=== PATIENT | male | born 1950 | race Caucasian/White ===

== ENCOUNTER 2023-06-25 15:07 | Emergency (ER) | payer BC, MEDICARE, SELFPAY ==
[2023-06-25 15:10] VITALS: BP 128/58
[2023-06-25 15:39] LABS: % Basophils 0.5 % (0-2); % Immature Granulocytes 0.5 % (0-0.5); % Lymphocytes 24.3 % (20.5-51.1); % Monocytes 13.5 % (1.7-9.3); % Neutrophils 55.2 % (42.2-75.2); Absolute Eosinophils 0.4 10^3/uL (0-0.7); Absolute Lymphocytes 1.5 10^3/uL (1.2-3.4); Absolute Monocytes 0.8 10^3/uL (0.1-0.6); Absolute Neutrophils 3.4 10^3/uL (1.4-6.5); Hemoglobin 12.7 g/dL (13.0-18.0); Mean Corp Hgb Conc. 34.3 g/dL (33.0-37.0); Mean Corpuscular Hgb 30.8 pg (27.0-31.0); Mean Corpuscular Volume 89.6 fL (80.0-94.0); Mean Platelet Volume 11.3 fL (7.4-10.4); Nucleated Red Blood Cells % 0 % (-); Platelet Count 118 10^3/uL (130-400); Red Blood Cell Count 4.13 10^6/uL (4.70-6.10); White Blood Cell Count 6.1 10^3/uL (4.8-10.8)
[2023-06-25 15:51] LABS: ALT (SGPT) 22 U/L (0-50); AST (SGOT) 24 U/L (17-59); Albumin 3.8 g/dl (3.5-5.0); Alkaline Phosphatase 61 U/L (38-126); Blood Urea Nitrogen 20 mg/dl (9-20); Calcium 8.8 mg/dl (8.4-10.2); Carbon Dioxide 30 mmol/L (22-30); Chloride 99 mmol/L (98-107); Glucose 148 mg/dl (70-99); Potassium 4.1 mmol/L (3.5-5.1); Sodium 134 mmol/L (135-145); Total Bilirubin 0.7 mg/dl (0.2-1.3); Total Protein 6.3 g/dl (6.3-8.2); eGFR > 60.00
[2023-06-25 16:00] LABS: Troponin I < 0.012 ng/ml
[2023-06-25 16:55] LABS: NT-proBNP 436 pg/ml
[2023-06-25 18:15] VITALS: BMI 38.6
[2023-06-25 18:20] VITALS: BP 131/60
--- NOTE | 2023-06-25 18:41 | ED.GENMED ---
History of Present Illness
General
Chief Complaint: Breathing Problem
Source: patient
Exam Limitations: none
Time Seen by Provider: 06/25/23 18:06
Nursing documentation reviewed up to this point in time: agreed with
Travel History
Have you had any contact with someone who has COVID-19?: No
Do you have any symptoms of coronavirus? Fever > 100 degrees, chills, cough, shortness of breath, sore throat, loss of taste or smell, muscle aches, or headache?: No
History of Present Illness
History of Present Illness:
73-year-old male presents emergency department due to chest pain that started yesterday, and shortness of breath today. He had a TAVR on 06/16/2023. He denies chest pain at this time.
Past History
Past History
ED Past Medical History: Other (Kidney stones, BPH) and Other (Aortic stenosis)
ED Past Surgical History: Urological
Social History
Tobacco: Non-smoker
Personal:
Living: with family
Review of Systems
Review of Systems
Allergies reviewed?: Yes
All Other Systems: Not applicable
Constitutional: Reports no symptoms
EENT: Reports no symptoms
Respiratory: Reports trouble breathing
Cardiac: Reports chest pain
ABD/GI: Reports no symptoms
: Reports no symptoms
Musculoskeletal: Reports no symptoms
Skin: Reports no symptoms
Neurological: Reports no symptoms
Endocrine: Reports no symptoms
Hematologic/Lymphatic: Reports no symptoms
Psychiatric: Reports no symptoms
Phy Exam
Physical Exam
Physical Exam:
Physical Exam
General: no apparent distress, not acutely ill
Neck: supple. no meningeal signs. normal posterior pharynx
Heart: s1/s2 regular rate and rhythm, no murmur. equal radial
pulses.
HEENT: Pupils equal round reactive to light, EOMI
Lungs: no acute respiratory distress. clear bilaterally
Abdomen: normal bowel sounds. not tender. no CVAT
Neuro: alert and oriented. no focal neurological deficits cranial nerves II through XII intact
Skin: no rash
Psychiatric: well kept. interactive and cooperative
Extremities: no edema. no calf tenderness. negative homans. good distal pulses
Scores
Heart Failure Risk
Heart Failure Risk Score: Not Applicable
Heart Score for Chest Pain Patients
STEMI patient?: No
History: Slightly or Non-Suspicious
ECG: Normal
Age: >/= 65 years
Risk Factors: 1 or 2 Risk Factors
Troponin: </= Normal Limit
Heart Score for Chest Pain Patients: 3
Heart Score Risk: 2.5% MACE over next 6 weeks
Course
Orders/Labs/Results
Orders:
Orders
06/25/23 15:13
Electrocardiogram (*1) Urgent
Reason for Study: Chest Pain
EKG- Treatment ONCE
06/25/23 15:26
Complete Blood Count/With Diff Urgent
Comprehensive Metabolic Panel Urgent
NT-proBNP Urgent
Comment: ADD ON
Troponin I Urgent
06/25/23 16:20
Add On- LAB Urgent
Tests Added?: bnp
06/25/23 16:21
CR Chest - 2 Views Urgent
Comment:
Reason For Exam: SOB
Abnormal Lab Results
06/25/23
15:26
RBC 4.13 L 10^6/uL
(4.70-6.10)
Hgb 12.7 L g/dL
(13.0-18.0)
Hct 37.0 L %
(39.0-52.0)
Plt Count 118 L 10^3/uL
(130-400)
MPV 11.3 H fL
(7.4-10.4)
Absolute Monos (auto) 0.8 H 10^3/uL
(0.1-0.6)
Monocytes % 13.5 H %
(1.7-9.3)
Sodium 134 L mmol/L
(135-145)
Glucose 148 H mg/dl
(70-99)
06/25/23 15:26
06/25/23 15:26
Vital Signs
Initial and Last Documented VS:
Initial Vital Signs
Temp Pulse Resp BP Pulse Ox
98.2 F 61 18 128/58 95
06/25/23 15:10 06/25/23 15:10 06/25/23 15:10 06/25/23 15:10 06/25/23 15:10
Last Documented Vital Signs
Temp Pulse Resp BP Pulse Ox
98.2 F 60 21 131/60 92
06/25/23 15:10 06/25/23 18:45 06/25/23 18:45 06/25/23 18:20 06/25/23 18:45
MDM/Problems Addressed
Differential Diagnosis Includes:
CHF, ACS, pneumonia
MDM/Problems Addressed:
73-year-old male with chest pain and shortness of breath, resolved. Recent TAVR. Stable for discharge. Discussed with Dr. Will Peres, recommends discharge if hemodynamically stable.
Chronic conditions affecting care: Cardiomyopathy
Acute Exacerbation and/or Progression of Chronic Illness: Cardiomyopathy
*Radiology
Radiology exam reviewed: radiology read reviewed (Chest x-ray no acute findings)
*Pulse Oximetry
Patient hypoxic: no
*EKG
Interpreted by ED Provider?: Yes
EKG Intrepretation Date: 06/25/23
EKG Intrepretation Time: 15:17
Interpretation: normal
Comparison EKG: changes noted
Heart Rate: 63
Rate: normal
Rhythm: sinus
[place]: normal axis
Interval: normal interval
QRS Pattern: normal QRS
Ischemia: no ischemia
*Concrete Vault Maker Interpretation
Rate: normal
Interpretation: normal
Heart Rate: 62
Rhythm: sinus
*Critical Care Note
Total Time (30-74mins, 75-104mins- exclusive of procedures): Not Applicable
Data Reviewed
Review of Other/Old Records Reveals: Operative Reports (TAVR 06/17/[address] Richey)
Patient Management
Social determinants of health affecting care: Strong social support
Discussion with other providers: Transportation Mechanic (cardiology Dr. Peres)
Escalation/DeEscalation of care consider admission/obs:
admit not indicated
ED Attending Note
-
Portions of this chart may have been created with voice recognition software.� Occasional wrong word or��sound alike� substitutions may have occurred due to the inherent limitations of voice recognition software.
Discharge Plan
Departure
Patient Disposition: Home (Routine Discharge)
Date of Disposition: 06/25/23
Time of Disposition: 19:35
Patient with high blood pressure during this ER visit?: Yes
Condition: Good
Discharge Problem:
Chest pain
Instructions: Chest Pain DCA Follow Up
Prescriptions:
No Action
hydrochlorothiazide 50 MG tablet
25 mg PO DAILY
tamsulosin 0.4 MG capsule
0.4 mg PO HS
metformin 500 MG tablet
1,000 mg PO BID
Hold Instructions: Resume on 06/19/23. Hold until friday06/19/2023
duloxetine 30 MG capsule,delayed release(/EC)
30 mg PO HS
acetaminophen 325 MG tablet
650 mg PO Q4HPRN PRN (Reason: pain)
allopurinol 300 mg Tablet
300 mg PO HS
tadalafil [Cialis] 5 mg Tablet
5 mg PO DAILY
Mounjaro 2.5 mg/0.5 mL Pen Injector
5 mg SC FR
Hold Instructions: Resume on 07/02/23. Hold for 2 weeks until 07/02/2023
aspirin 81 mg Tablet,Chewable
81 mg PO DAILY
atorvastatin 20 mg tablet
20 mg PO HS Qty: 90 3RF
Rx Instructions:
Note increased dose
metoprolol succinate 25 mg tablet extended release 24 hr
25 mg PO DAILY Qty: 90 3RF
furosemide 40 mg tablet
40 mg PO DAILY Qty: 90 3RF
Referrals:
UNKNOWN - PT DOES,NOT KNOW [Unknown Provider] -
Interventions
Interventions:
*Risk Screen - Suicide Last Done: 06/25/23 15:10
*General Assessment Last Done: 06/25/23 18:15
*Neglect/Abuse Screening Last Done: 06/25/23 15:10
ED- Fall Risk Assessment Last Done: 06/25/23 18:05
*ED COVID-19 Vaccine History Last Done: 06/25/23 15:10
ED- Cardiac Assessment Last Done: 06/25/23 18:15
ED- Pulmonary Assessment Last Done: 06/25/23 18:05
== END 2023-06-25 20:12 | disposition home or self-care (01) ==
LOC: EMR 15:07
PROVIDERS: Emergency Medicine; EMERGENCY PHYSICIAN Emergency Medicine; FAMILY PHYSICIAN Family Medicine
DX: R07.89 Other chest pain (principal); R03.0 Elevated blood-pressure reading, without diagnosis of hypertension
CPT/HCPCS: 99285; 71046; 80053; 83880; 84484; 85025; 93005

== ENCOUNTER 2023-07-23 10:16 | Emergency (ER) | payer BC, SELFPAY ==
[2023-07-23 10:24] VITALS: BP 126/64
[2023-07-23 11:46] VITALS: BMI 38.0
--- NOTE | 2023-07-23 11:58 | ED.GENMED ---
History of Present Illness
<Sirena Browne MD - Last Filed: 07/23/23 12:25>
General
Chief Complaint: Chest Pain
Source: patient
Exam Limitations: none
Time Seen by Provider: 07/23/23 11:44
Nursing documentation reviewed up to this point in time: agreed with
Travel History
Have you had any contact with someone who has COVID-19?: No
Do you have any symptoms of coronavirus? Fever > 100 degrees, chills, cough, shortness of breath, sore throat, loss of taste or smell, muscle aches, or headache?: No
History of Present Illness
History of Present Illness:
The patient is a pleasant 73-year-old man with a past medical history of high blood pressure and recent TAVR procedure done last month, who comes in with complaints of 5 days of constant diffuse chest pain, both across the front of his chest and in
his right scapular area. Patient reports that the pain seems to intensify when he is standing up and just standing around. It seems to improve with rest. However, at times it is worse when he takes a deep breath. He reports after his TAVR
procedure, he did have a cough and was treated with antibiotics for pneumonia. He reports his cough is improved but he still worries he may have pneumonia. He denies shortness of breath that is significant. He denies fever. He denies leg pain
and leg swelling.
Past History
<Sirena Browne MD - Last Filed: 07/23/23 12:25>
Past History
ED Past Medical History: HTN, Other (Kidney stones, BPH) and Other (Aortic stenosis)
ED Past Surgical History: Cardiac (Aortic valve replacement) and Urological
Social History
Tobacco: Non-smoker
Alcohol: Other
Personal:
Living: with family
Employment: Other
Family History
Family History: Other
Review of Systems
<Sirena Browne MD - Last Filed: 07/23/23 12:25>
Review of Systems
Allergies reviewed?: Yes
All Other Systems: ROS reviewed and negative except as documented in HPI and ROS
Constitutional: Reports no symptoms
EENT: Reports no symptoms
Respiratory: Reports no symptoms
Cardiac: Reports chest pain
ABD/GI: Reports no symptoms
: Reports no symptoms
Musculoskeletal: Reports no symptoms
Skin: Reports no symptoms
Neurological: Reports no symptoms
Endocrine: Reports no symptoms
Hematologic/Lymphatic: Reports no symptoms
Psychiatric: Reports no symptoms
Phy Exam
<Sirena Browne MD - Last Filed: 07/23/23 12:25>
Physical Exam
Physical Exam:
Physical Exam
General: no apparent distress, not acutely ill, appears comfortable. Conversational, smiling
Neck: supple.
Heart: s1/s2 regular rate and rhythm,
Lungs: no acute respiratory distress. clear bilaterally
Abdomen: normal bowel sounds. not tender. no CVAT. Soft no pulsatile mass
Neuro: alert and oriented. no focal neurological deficits
Skin: no rash
Psychiatric: well kept. interactive and cooperative
Extremities: Trace edema bilateral ankles
<Jeremias Pittman DO - Last Filed: 07/28/23 06:06>
Heart Score for Chest Pain Patients
STEMI patient?: Not applicable
Course
<Sirena Browne MD - Last Filed: 07/23/23 12:25>
Orders/Labs/Results
Orders:
Orders
07/23/23 10:18
Electrocardiogram (*1) Urgent
Reason for Study: Chest Pain
EKG- Treatment ONCE
07/23/23 12:17
CT Chest Pe Study Urgent
Comment:
Reason For Exam: CP
Complete Blood Count/With Diff Urgent
Comprehensive Metabolic Panel Urgent
Troponin I Urgent
07/23/23 13:05
Acetaminophen [Tylenol] 1,000 mg PO NOW STA
Abnormal Lab Results
07/23/23
12:17
RBC 4.46 L 10^6/uL
(4.70-6.10)
Hct 38.7 L %
(39.0-52.0)
MPV 11.0 H fL
(7.4-10.4)
Absolute Monos (auto) 1.0 H 10^3/uL
(0.1-0.6)
Lymphocytes % 17.5 L %
(20.5-51.1)
Monocytes % 10.1 H %
(1.7-9.3)
Sodium 134 L mmol/L
(135-145)
Glucose 105 H mg/dl
(70-99)
07/23/23 12:17
07/23/23 12:17
Vital Signs
Initial and Last Documented VS:
Initial Vital Signs
Temp Pulse Resp BP Pulse Ox
98.4 F 73 16 126/64 98
07/23/23 10:24 07/23/23 10:24 07/23/23 10:24 07/23/23 10:24 07/23/23 10:24
Last Documented Vital Signs
Temp Pulse Resp BP Pulse Ox
98.4 F 63 20 124/63 94
07/23/23 10:24 07/23/23 15:00 07/23/23 15:00 07/23/23 14:37 07/23/23 15:00
Evangelinalt;Jeremias Pittman, DO - Last Filed: 07/28/23 06:06>
Orders/Labs/Results
Orders:
Orders
07/23/23 10:18
Electrocardiogram (*1) Urgent
Reason for Study: Chest Pain
EKG- Treatment ONCE
07/23/23 12:17
CT Chest Pe Study Urgent
Comment:
Reason For Exam: CP
Complete Blood Count/With Diff Urgent
Comprehensive Metabolic Panel Urgent
Troponin I Urgent
07/23/23 13:05
Acetaminophen [Tylenol] 1,000 mg PO NOW STA
Abnormal Lab Results
07/23/23
12:17
RBC 4.46 L 10^6/uL
(4.70-6.10)
Hct 38.7 L %
(39.0-52.0)
MPV 11.0 H fL
(7.4-10.4)
Absolute Monos (auto) 1.0 H 10^3/uL
(0.1-0.6)
Lymphocytes % 17.5 L %
(20.5-51.1)
Monocytes % 10.1 H %
(1.7-9.3)
Sodium 134 L mmol/L
(135-145)
Glucose 105 H mg/dl
(70-99)
07/23/23 12:17
07/23/23 12:17
Vital Signs
Initial and Last Documented VS:
Initial Vital Signs
Temp Pulse Resp BP Pulse Ox
98.4 F 73 16 126/64 98
07/23/23 10:24 07/23/23 10:24 07/23/23 10:24 07/23/23 10:24 07/23/23 10:24
Last Documented Vital Signs
Temp Pulse Resp BP Pulse Ox
98.4 F 63 20 124/63 94
07/23/23 10:24 07/23/23 15:00 07/23/23 15:00 07/23/23 14:37 07/23/23 15:00
<Sirena Browne MD - Last Filed: 07/23/23 12:25>
MDM/Problems Addressed
Differential Diagnosis Includes:
pneumonia, acute coronary syndrome, pulmonary embolism, aortic dissection, musculoskeletal chest pain, pericardial effusion, pericarditis
MDM/Problems Addressed:
Patient presents with acute diffuse chest pain and right upper back pain
Chronic conditions affecting care:
Given patient has a history of hypertension, he could be at increased risk of developing acute coronary syndrome
Chronic conditions affecting care: HTN
<Sirena Browne MD - Last Filed: 07/23/23 12:25>
*Pulse Oximetry
Patient hypoxic: no
*EKG
Interpreted by ED Provider?: Yes
Interpretation: normal
Comparison EKG: no changes
Rate: normal
Rhythm: sinus
[place]: normal axis
Interval: normal interval
QRS Pattern: normal QRS
Ischemia: no ischemia
*Home Agent Interpretation
Rate: normal
Interpretation: normal
Rhythm: sinus
Data Reviewed
Review of Other/Old Records Reveals: Progress Notes (Cardiology progress note reviewed from 06/18/2023 which showed successful TAVR procedure and normal appearing echo)
Source: patient
<Jeremias Pittman DO - Last Filed: 07/28/23 06:06>
*Critical Care Note
Total Time (30-74mins, 75-104mins- exclusive of procedures): Not Applicable
<Sirena Browne MD - Last Filed: 07/23/23 12:25>
Patient Management
Social determinants of health affecting care: Living situation and Strong social support
<Jeremias Pittman DO - Last Filed: 07/28/23 06:06>
Update Note
Update Note:
Care of patient was transitioned pending CT PE. Patient had recent TAVR 1 month ago and has been complaining of a mild cough. CT negative for PE. There are expected changes in regards to small pericardial effusion and small pleural effusion. No
PE or pneumonia. We discussed possible muscle relaxant for intercostal muscle strain from coughing but patient seems uninterested. He will follow-up with his cardiothoracic team
Patient very well-appearing nontoxic on my exam
ED Attending Note
<Sirena Browne MD - Last Filed: 07/23/23 12:25>
-
Portions of this chart may have been created with voice recognition software.� Occasional wrong word or��sound alike� substitutions may have occurred due to the inherent limitations of voice recognition software.
Discharge Plan
Departure
Patient Disposition: Home (Routine Discharge)
Date of Disposition: 07/23/23
Time of Disposition: 15:04
Patient with high blood pressure during this ER visit?: No
Discharge Problem:
Intercostal muscle strain
Prescriptions:
No Action
hydrochlorothiazide 50 MG tablet
50 mg PO DAILY
tamsulosin 0.4 MG capsule
0.4 mg PO HS
duloxetine 30 MG capsule,delayed release(DR/EC)
30 mg PO HS
acetaminophen 325 MG tablet
650 mg PO Q4HPRN PRN (Reason: mild pain)
allopurinol 300 mg Tablet
300 mg PO HS
tadalafil [Cialis] 5 mg Tablet
5 mg PO DAILY
Mounjaro 2.5 mg/0.5 mL Pen Injector
5 mg SC FR
Hold Instructions: Resume on 07/02/23. Hold for 2 weeks until 07/02/2023
aspirin 81 mg Tablet,Chewable
81 mg PO DAILY
atorvastatin 20 mg tablet
20 mg PO HS Qty: 90 3RF
metoprolol succinate 25 mg tablet extended release 24 hr
25 mg PO DAILY Qty: 90 3RF
furosemide 40 mg tablet
40 mg PO DAILY Qty: 90 3RF
lidocaine 5 % Adhesive Patch,Medicated
2 patch TOPICAL DAILYPRN PRN (Reason: on to each shoulder)
docusate sodium [Colace] 100 mg Capsule
100 mg PO BIDPRN PRN (Reason: constipation)
metformin 500 mg Tablet Extended Release 24 Hr
1,000 mg PO BID@0800,1700
[place] 3 billion cell Capsule
1 cap PO DAILY
Referrals:
Yancy Traore DO [Family Provider] -
Activity Restrictions/Additional Instructions:
Please return for any worsening symptoms.
You may return at any time if you have further concerns.
Please follow up with your cardiothoracic surgeon and discuss the CT findings.
Thank you for choosing [facility].
Interventions
Interventions:
*Risk Screen - Suicide Last Done: 07/23/23 11:46
*General Assessment Last Done: 07/23/23 11:46
*Neglect/Abuse Screening Last Done: 07/23/23 11:46
ED- Fall Risk Assessment Last Done: 07/23/23 12:06
*ED COVID-19 Vaccine History Last Done: 07/23/23 10:24
*Nursing Disposition Last Done: 07/23/23 15:09
ED- Cardiac Assessment Last Done: 07/23/23 11:46
Discharge Date and Time
Discharge Date/Time: 07/23/23 15:10
[2023-07-23 12:00] VITALS: BP 170/71
[2023-07-23 12:48] LABS: % Basophils 0.4 % (0-2); % Eosinophils 3.5 % (0-6); % Immature Granulocytes 0.3 % (0-0.5); % Lymphocytes 17.5 % (20.5-51.1); % Monocytes 10.1 % (1.7-9.3); % Neutrophils 68.2 % (42.2-75.2); Absolute Eosinophils 0.3 10^3/uL (0-0.7); Absolute Lymphocytes 1.7 10^3/uL (1.2-3.4); Absolute Neutrophils 6.4 10^3/uL (1.4-6.5); Hematocrit 38.7 % (39.0-52.0); Hemoglobin 13.5 g/dL (13.0-18.0); Mean Corp Hgb Conc. 34.9 g/dL (33.0-37.0); Mean Corpuscular Hgb 30.3 pg (27.0-31.0); Mean Corpuscular Volume 86.8 fL (80.0-94.0); Nucleated Red Blood Cells % 0 % (-); Platelet Count 189 10^3/uL (130-400); Red Blood Cell Count 4.46 10^6/uL (4.70-6.10); Red Cell Dist. Width 13.8 % (11.5-14.5); White Blood Cell Count 9.4 10^3/uL (4.8-10.8)
[2023-07-23 13:00] VITALS: BP 133/56
[2023-07-23 13:12] LABS: ALT (SGPT) 19 U/L (0-50); AST (SGOT) 27 U/L (17-59); Albumin 4.2 g/dl (3.5-5.0); Alkaline Phosphatase 48 U/L (38-126); Blood Urea Nitrogen 20 mg/dl (9-20); Carbon Dioxide 25 mmol/L (22-30); Chloride 101 mmol/L (98-107); Estimated Creatinine Clearance 108 ml/min; Glucose 105 mg/dl (70-99); Potassium 4.6 mmol/L (3.5-5.1); Sodium 134 mmol/L (135-145); Total Bilirubin 0.8 mg/dl (0.2-1.3); eGFR > 60.00
[2023-07-23 13:14] LABS: Troponin I < 0.012 ng/ml
[2023-07-23] MEDS: TYLENOL 1000 MG PO (13:15)
[2023-07-23 14:00] VITALS: BP 171/76
[2023-07-23 14:37] VITALS: BP 124/63
[2023-07-24 06:59] LABS: Glucose - Point of Care 90 mg/dl (70-99)
== END 2023-07-23 15:10 | disposition home or self-care (01) ==
LOC: EMR 10:16
PROVIDERS: EMERGENCY PHYSICIAN Emergency Medicine; FAMILY PHYSICIAN Family Medicine
DX: S29.011A Strain of muscle and tendon of front wall of thorax, initial encounter (principal); X58.XXXA Exposure to other specified factors, initial encounter; M54.89 Other dorsalgia; I10 Essential (primary) hypertension; J90 Pleural effusion, not elsewhere classified; Z95.2 Presence of prosthetic heart valve
CPT/HCPCS: 99285; 71275; 80053; 82962; 84484; 85025; 93005; Q9967

== ENCOUNTER → 2023-08-06 15:58 | Outpatient (REF) | payer BC, SELFPAY | LOC: DHCBS MAIN 15:58 | PROVIDERS: ATTENDING PHYSICIAN Internal Medicine Cardiovascular Disease; FAMILY PHYSICIAN Family Medicine | DX: Z95.2 Presence of prosthetic heart valve (principal) | CPT/HCPCS: 93306 ==

== ENCOUNTER 2023-08-22 09:41 | Outpatient (RCR) | payer BC, SELFPAY ==
[2023-07-31 10:58] LABS: Glucose - Point of Care 111 mg/dl (70-99)
[2023-07-31 11:58] LABS: Glucose - Point of Care 98 mg/dl (70-99)
[2023-08-04 09:31] LABS: Glucose - Point of Care 134 mg/dl (70-99)
[2023-08-04 10:21] LABS: Glucose - Point of Care 130 mg/dl (70-99)
[2023-08-08 09:21] LABS: Glucose - Point of Care 179 mg/dl (70-99)
[2023-08-08 10:25] LABS: Glucose - Point of Care 161 mg/dl (70-99)
[2023-08-11 09:27] LABS: Glucose - Point of Care 147 mg/dl (70-99)
[2023-08-11 10:30] LABS: Glucose - Point of Care 143 mg/dl (70-99)
[2023-08-13 09:18] LABS: Glucose - Point of Care 159 mg/dl (70-99)
[2023-08-13 10:26] LABS: Glucose - Point of Care 142 mg/dl (70-99)
[2023-08-15 09:31] LABS: Glucose - Point of Care 187 mg/dl (70-99)
[2023-08-15 10:34] LABS: Glucose - Point of Care 133 mg/dl (70-99)
[2023-08-18 09:22] LABS: Glucose - Point of Care 155 mg/dl (70-99)
[2023-08-18 10:17] LABS: Glucose - Point of Care 125 mg/dl (70-99)
== END 2023-08-22 23:59 | disposition home or self-care (01) ==
LOC: CRHB 09:41
PROVIDERS: ATTENDING PHYSICIAN Internal Medicine Cardiovascular Disease; FAMILY PHYSICIAN Family Medicine
DX: Z95.4 Presence of other heart-valve replacement (principal)
CPT/HCPCS: 82962; 93797; 93798

== ENCOUNTER 2023-09-18 07:30 | Outpatient (RCR) | payer BC, SELFPAY | END 2023-09-18 23:59 | disposition home or self-care (01) | LOC: CRHB 07:30 | PROVIDERS: ATTENDING PHYSICIAN Internal Medicine Cardiovascular Disease; FAMILY PHYSICIAN Family Medicine | DX: I35.0 Nonrheumatic aortic (valve) stenosis (principal); Z95.4 Presence of other heart-valve replacement | CPT/HCPCS: 93797; 93798 ==

== ENCOUNTER 2023-12-16 06:20 | Day surgery (SDC) | payer BC, SELFPAY ==
[2023-10-01 13:48] VITALS: BMI 38.1
[2023-10-01 14:56] LABS: Hematocrit 41.2 % (39.0-52.0); Hemoglobin 13.7 g/dL (13.0-18.0); Mean Corp Hgb Conc. 33.3 g/dL (33.0-37.0); Mean Corpuscular Hgb 30.8 pg (27.0-31.0); Mean Corpuscular Volume 92.6 fL (80.0-94.0); Platelet Count 190 10^3/uL (130-400); Red Blood Cell Count 4.45 10^6/uL (4.70-6.10); Red Cell Dist. Width 14.7 % (11.5-14.5); White Blood Cell Count 7.4 10^3/uL (4.8-10.8)
[2023-12-11 12:17] VITALS: BMI 38.3
[2023-12-11 13:55] LABS: Hemoglobin 14.4 g/dL (13.0-18.0); Mean Corp Hgb Conc. 34.3 g/dL (33.0-37.0); Mean Corpuscular Hgb 31.8 pg (27.0-31.0); Mean Corpuscular Volume 92.7 fL (80.0-94.0); Mean Platelet Volume 11.6 fL (7.4-10.4); Platelet Count 206 10^3/uL (130-400); Red Blood Cell Count 4.53 10^6/uL (4.70-6.10); Red Cell Dist. Width 13.5 % (11.5-14.5); White Blood Cell Count 7.2 10^3/uL (4.8-10.8)
[2023-12-16] VITALS (11 sets, daily range): BP systolic 126–163; BP diastolic 60–82; BMI 38.3
[2023-12-16] MEDS: NORMOSOL-R 1000 IV (07:05)
[2023-12-16 07:20] LABS: Glucose - Point of Care 146 mg/dl (70-99)
[2023-12-16] MEDS: MOBIC 15 MG PO (07:21)
[2023-12-16] MEDS: TYLENOL 1000 MG PO (07:21)
[2023-12-16 09:35] LABS: Glucose - Point of Care 138 mg/dl (70-99)
== END 2023-12-16 12:04 | disposition home or self-care (01) ==
LOC: SDS 06:20
PROVIDERS: ATTENDING PHYSICIAN Orthopaedic Surgery Hand Surgery; FAMILY PHYSICIAN Family Medicine; OTHER PHYSICIAN Internal Medicine Cardiovascular Disease
DX: S46.011A Strain of muscle(s) and tendon(s) of the rotator cuff of right shoulder, initial encounter (principal); S46.211A Strain of muscle, fascia and tendon of other parts of biceps, right arm, initial encounter; X58.XXXA Exposure to other specified factors, initial encounter; M75.41 Impingement syndrome of right shoulder; M19.011 Primary osteoarthritis, right shoulder; M24.011 Loose body in right shoulder
CPT/HCPCS: 29827; 29828; 29826; 36415; 82962; 85027; 93005; C1713; C1763

== ENCOUNTER 2024-01-21 16:13 | Outpatient (RCR) | payer BC, SELFPAY | END 2024-01-21 23:59 | disposition home or self-care (01) | LOC: RPT 16:13 | PROVIDERS: ATTENDING PHYSICIAN Orthopaedic Surgery Hand Surgery; FAMILY PHYSICIAN Family Medicine | DX: Z47.89 Encounter for other orthopedic aftercare (principal); Z73.6 Limitation of activities due to disability | CPT/HCPCS: 97010; 97110; 97140; 97161 ==

== ENCOUNTER 2024-02-19 12:03 | Outpatient (RCR) | payer BC, SELFPAY | END 2024-02-19 23:59 | disposition home or self-care (01) | LOC: RPT 12:03 | PROVIDERS: ATTENDING PHYSICIAN Orthopaedic Surgery Hand Surgery; FAMILY PHYSICIAN Family Medicine | DX: M62.81 Muscle weakness (generalized) (principal); Z98.890 Other specified postprocedural states; Z73.6 Limitation of activities due to disability | CPT/HCPCS: 97010; 97110; 97112; 97140; 97530 ==

== ENCOUNTER 2024-03-25 13:03 | Outpatient (RCR) | payer BC, SELFPAY | END 2024-03-25 23:59 | disposition home or self-care (01) | LOC: RPT 13:03 | PROVIDERS: ATTENDING PHYSICIAN Orthopaedic Surgery Hand Surgery; FAMILY PHYSICIAN Family Medicine | DX: M62.81 Muscle weakness (generalized) (principal); Z98.890 Other specified postprocedural states; Z73.6 Limitation of activities due to disability | CPT/HCPCS: 97010; 97110; 97112 ==

== ENCOUNTER 2024-04-13 11:47 | Outpatient (RCR) | payer BC, SELFPAY | END 2024-04-13 23:59 | disposition home or self-care (01) | LOC: RPT 11:47 | PROVIDERS: ATTENDING PHYSICIAN Orthopaedic Surgery Hand Surgery; FAMILY PHYSICIAN Family Medicine | DX: M62.81 Muscle weakness (generalized) (principal); Z98.890 Other specified postprocedural states; Z73.6 Limitation of activities due to disability | CPT/HCPCS: 97010; 97110; 97112; 97140 ==

== ENCOUNTER 2024-05-06 13:09 | Outpatient (RCR) | payer BC, SELFPAY | END 2024-05-06 23:59 | disposition home or self-care (01) | LOC: RPT 13:09 | PROVIDERS: ATTENDING PHYSICIAN Orthopaedic Surgery Hand Surgery; FAMILY PHYSICIAN Family Medicine | DX: M62.81 Muscle weakness (generalized) (principal); Z98.890 Other specified postprocedural states; Z73.6 Limitation of activities due to disability | CPT/HCPCS: 97010; 97110; 97112; 97140 ==

== ENCOUNTER → 2024-06-17 14:06 | Outpatient (REF) | payer BC, SELFPAY | LOC: RAD 14:06 | PROVIDERS: ATTENDING PHYSICIAN Specialist; FAMILY PHYSICIAN Student in an Organized Health Care Education/Training Program | DX: R31.0 Gross hematuria (principal) | CPT/HCPCS: 74178; Q9967 ==

== ENCOUNTER → 2025-04-27 10:32 | Outpatient (REF) | payer BC, SELFPAY | LOC: RCS 10:32 | PROVIDERS: ATTENDING PHYSICIAN Internal Medicine Cardiovascular Disease; FAMILY PHYSICIAN Student in an Organized Health Care Education/Training Program | DX: Z95.2 Presence of prosthetic heart valve (principal) | CPT/HCPCS: 93306 ==